=== PATIENT | male | born 1955 | race Caucasian/White ===

== ENCOUNTER → 2020-05-31 | Outpatient (CLI) | payer BC, OTHER ==
[~2020-05-31] MED LIST: CIPRODEX OTIC7.5 ML EARBOTH; NORCO 7.5-3251 EACH PO
[2020-05-31 09:32] LABS: RED BLOOD COUNT 5.51 M/UL (4.20-5.50); WHITE BLOOD COUNT 6.2 K/UL (4.5-11.0)
== END ==
LOC: LAB 08:38
PROVIDERS: Transplant Surgery
DX: Z94.4 Liver transplant status (principal)
CPT/HCPCS: 36415; 80053; 80197; 85025

== ENCOUNTER → 2020-12-24 | Outpatient (CLI) | payer OTHER | LOC: KOH-I 08:37 | DX: M79.671 Pain in right foot (principal); M19.071 Primary osteoarthritis, right ankle and foot | CPT/HCPCS: 73630 ==

== ENCOUNTER → 2021-11-05 | Outpatient (CLI) | payer OTHER | LOC: KOH-I 08:28 | DX: N17.9 Acute kidney failure, unspecified (principal) | CPT/HCPCS: 76775 ==